=== PATIENT | female | born 1940 | race Caucasian/White ===

== ENCOUNTER 2022-02-15 00:41 | Inpatient (IN) | payer MEDICARE ==
[~2022-02-15] VITALS: Ht 162.6 cm; Wt 55.2 kg
[2022-02-15] MEDS ORDERED: Percocet 5-3251 EACH PO (15:50)
[2022-02-15] MEDS ORDERED: ATOR80 PO (15:50)
[2022-02-15] MEDS ORDERED: OMEP20ER (15:52)
[2022-02-15] MEDS ORDERED: OXYC5 (15:52)
[2022-02-15] MEDS ORDERED: ONDA4ODT (15:54)
[2022-02-15 15:55] LABS: Hematocrit 31.4 % (33.0-51.0); Hemoglobin 9.7 g/dL (11.5-16.0); Mean Corpuscular HGB 34.3 pg (26.0-34.0); Mean Corpuscular HGB Conc 30.9 g/dL (31.5-36.5); Mean Corpuscular Volume 111 fL (80-100); Mean Platelet Volume 10.6 fL (9.1-12.4); Platelet Count 239 K/mm3 (150-400); RDW Coefficient Variation 12.9 % (11.7-14.2); RDW Standard Deviation 52.9 fL (35.1-46.3); Red Blood Cell Count 2.83 M/mm3 (3.80-5.20); White Blood Cell Count 6.18 K/mm3 (4.00-11.30)
[2022-02-15] MEDS ORDERED: TORSE20 PO (16:06)
[2022-02-15 16:29] LABS: Alanine Aminotransfer (ALT/SGP 38 U/L (12-78); Albumin/Globulin Ratio 0.5 (0.8-1.8); Alk Phos 89 U/L (50-136); Anion Gap 13 mmol/L (6-16); Aspartate Aminotrans (AST/SGOT 43 U/L (12-37); Bilirubin, Direct <0.1 mg/dL (0.0-0.3); Bilirubin, Indirect Unable to Calculate mg/dL (0.1-0.7); Bilirubin, Total 0.2 mg/dL (0.1-1.0); Blood Urea Nitrogen 87 mg/dL (8-24); Bun/Creatinine Ratio 8.9 (12.0-20.0); CO2, Blood 21 mmol/L (21-32); Chloride, Blood 108 mmol/L (98-108); Creatinine, Blood 9.77 mg/dL (0.40-1.00); Globulin, Blood 4.4 g/dL (2.2-4.0); Glomerular Filtration Rate 4 (60-); Glucose, Blood 93 mg/dL (70-99); Phosphorus, Blood 8.2 mg/dL (2.5-4.9); Potassium, Blood 4.4 mmol/L (3.5-5.5); Sodium, Blood 142 mmol/L (136-145); Total Protein, Blood 6.4 g/dL (6.4-8.2)
--- NOTE | 2022-02-15 16:57 | NUR ---
"Spiritual Care | Pt. request Pt. is awake in bed and welcomes my visit. Pts. daughter and granddaughter are present. Pt. is from [place] and is unsettled by her current condition as she has not experienced it before. Listen empathetically with a calming presence. Seek to normalize the Pt. experience. Prayed with Pt. Pt. verbalized gratitude for the spiritual care visit."
[2022-02-15 18:18] LABS: Digoxin (Lanoxin) 7.71 ug/mL (0.80-2.00)
--- NOTE | 2022-02-15 18:45 | NUR ---
PT ARRIVED THIS AFTERNOON FROM [facility] WITH DX OF AFIB RVR, HWNE ARRIVED PT'S AMIODARONE DRIP WAS COMPLETED. PT ARRIVED PAIN FREE, REPORTS SOME SOB WHICH IS UNCHANGED FOR HER. PT WITH MULTIPLE CRITCAL VALUES THAT WERE CALLED INTO DR HERNANDEZ. NEPHROLOGY CONSULT HAS BEEN COMPLETED VIA [facility]. PT A/O X3, SHE IS NOT ABLE TO PROVIDE ALL OF HER OWN MEDICAL HX. FAMILY HAS ARRIVED FROM [place] AT THIS TIME AND IS AT THE BEDSIDE. VSS, SHE DOES HAVE SOME SOFT BLOOD PRESSURES INTERMITTENTLY. EKG COMPLETE. MED REC COMPLETED PER MEDICATION LIST FROM HER PHARMACY
[2022-02-15 20:14] LABS: Uric Acid, Blood 4.9 mg/dL (2.6-6.0)
--- NOTE | 2022-02-15 21:00 | NUR ---
ASSUMPTION OF CARE THIS RN ASSUMED CARE OF PATIENT AT 1900. REPORT TAKEN FROM QUINTIN BERNARD. PATIENT CONTINUES TO BE IN AFIB ON THE MONITOR WITH HR 90-110S. PATIENT DENIES CHEST PAIN/PRESSURE. BP HAS BEEN SOFT WITH SBP RANGING FROM 80-100. MAP REMAINS >65. PATIENT DENIES SOB. SPO2 >92% ON RA. AFEBRILE. PATIENT IS ALERT AND ORIENTED X4. ABLE TO MAKE NEEDS KNOWN. MINIMUM ASSISTANCE NEEDED FOR REPOSITIONING IN BED. PATIENT WITH C/O PAIN IN TAILBONE; THIS RN NOTES A REPORTED TAILBONE FX IN H/P. SKIDDER THAD RN TO PATIENT'S RM AROUND 2044 TO SET UP PD AT BEDSIDE. PATIENT WILL RECEIVE PD FOR 8 HOURS DURING THIS SHIFT PER THAD BERNARD. PATIENT'S PD CATHETER IN RLQ OF ABDOMEN APPEARS WNL WITH NO SIGNS OF SWELLING/REDNESS/DRAINAGE PRIOR TO DIALYSIS STARTING; DRESSING C/D/I. NO FURTHER COMPLAINTS/NEEDS BY PATIENT AT THIS TIME. BED IN LOWEST POSITION AND CALL LIGHT WITHIN REACH. THIS RN WILL CONTINUE TO MONITOR AND PROVIDE INTERVENTIONS NEEDED/ORDERED.
[2022-02-16 03:46] LABS: Hematocrit 26.5 % (33.0-51.0); Hemoglobin 8.2 g/dL (11.5-16.0); Mean Corpuscular HGB 33.5 pg (26.0-34.0); Mean Corpuscular HGB Conc 30.9 g/dL (31.5-36.5); Mean Corpuscular Volume 108 fL (80-100); Mean Platelet Volume 10.5 fL (9.1-12.4); Platelet Count 201 K/mm3 (150-400); RDW Coefficient Variation 12.8 % (11.7-14.2); RDW Standard Deviation 50.3 fL (35.1-46.3); Red Blood Cell Count 2.45 M/mm3 (3.80-5.20); White Blood Cell Count 5.36 K/mm3 (4.00-11.30)
[2022-02-16 04:19] LABS: Albumin, Blood 1.7 g/dL (3.4-5.0); Anion Gap 12 mmol/L (6-16); Blood Urea Nitrogen 86 mg/dL (8-24); Bun/Creatinine Ratio 8.7 (12.0-20.0); CO2, Blood 23 mmol/L (21-32); Calcium, Blood 8.5 mg/dL (8.5-10.1); Chloride, Blood 107 mmol/L (98-108); Creatinine, Blood 9.94 mg/dL (0.40-1.00); Glomerular Filtration Rate 4 (60-); Glucose, Blood 120 mg/dL (70-99); Phosphorus, Blood 8.5 mg/dL (2.5-4.9); Potassium, Blood 3.8 mmol/L (3.5-5.5); Sodium, Blood 142 mmol/L (136-145)
--- NOTE | 2022-02-16 04:57 | NUR ---
SHIFT SUMMARY NO ACUTE EVENTS OVERNIGHT. PATIENT RECEIVING PERITONEAL DIALYSIS CURRENTLY. PATIENT CONTINUES TO HAVE SOFT BP'S WITH SBP 80-90'S, MAP REMAINS >65. PATIENT CONTINUES TO BE IN AFIB WITH HR 90-110S THROUGHOUT THE SHIFT. AFEBRILE. ON RA WITH O2 SATS >94%. DENIES CHEST PAIN/PRESSURE AND SOB. TROPONIN'S PEAKED AT 1608, THE LAST TROPONIN WAS 1445. MEPIPLEX PLACED ON COCCYX TO PROVIDE PADDING. PATIENT ABLE TO MAKE NEEDS KNOWN. CALLING APPROPRIATELY. BED IN LOWEST POSITION AND CALL LIGHT WITHIN REACH. THIS RN WILL CONTINUE TO MONITOR AND PROVIDE INTERVENTIONS NEEDED/ORDERED UNTIL SHIFT CHANGE AT 0700.
[2022-02-16 12:19] LABS: Anti-Xa UFH, PHA Monitoring 0.14 IU/mL; International Normalized Ratio 1.11; Prothrombin Time Results 11.6 Sec (9.7-11.5)
--- NOTE | 2022-02-16 18:25 | NUR ---
PT WITH ORTHOSTATIC BP WHEN [place] [facility] [place] PT ADDITIONALLY REFUSED TO USE BEDPAN LATER IN THE DAY, HER BP HAS BEEN READING ABOVE 100 SYSTOLIC, PT WAS AGAIN ASSISTED [place] [facility] [place] SHE AGAIN FELT DIZZY AND HAD ORTHOSTATIC BP, HER HR REMAINED UNCHANGED DURING THESE EPISODES. PT EDUCATED WELL FAMILY AT BEDSIDE THAT PT WILL BE BEDREST AND BEDPAN WILL BE USED FOR THIS TIME. HR HAS REMAINED 90-110s T/O THE DAY, AND SHE REMAINS IN A-FIB. SHE IS A/O X4. SHE ANSWERS QUESTIONS APPROPRIATELY IN FULL SENTENCES. PT'S APPETITE HAS SLOWLY INCREASED T/O THE DAY. HEPARIN DRIP IS INFUSING AT THIS TIME 15U/KG/HR. CARDIOLOGY AND NEPHROLOGY HAVE CONSULTED WITH PT TODAY
--- NOTE | 2022-02-16 20:45 | NUR ---
ASSUMPTION OF CARE THIS RN ASSUMED CARE OF PATIENT AT 1900. REPORT TAKEN FROM QUINTIN BERNARD. PATIENT REPOSITIONED, MEPIPLEX ON COCCYX CHANGED, AND LINEN CHANGED AFTER SHIFT CHANGE. PATIENT'S SBP 100'S, MAP >65. ON RA WITH O2 SATS >94%. PATIENT DENIES CHEST PAIN/PRESSURE AND SOB. AFEBRILE. PATIENT WAS MEDICATED PER EMAR FOR NAUSEA. CLOTH SHEARING SUPERVISOR TO ROOM AT TIME OF THIS NOTE FOR PERITONEAL DIALYSIS OVERNIGHT. PATIENT ABLE TO MAKE NEEDS KNOWN. BED IN LOWEST POSITION AND CALL LIGHT WITHIN REACH. THIS RN WILL CONTINUE TO MONITOR CLOSELY AND PROVIDE INTERVENTIONS NEEDED/ORDERED.
--- NOTE | 2022-02-16 21:17 | NUR ---
DIALYSIS-PD PT FALLS ASLEEP VERY EASY. AKSED IF I WAS A DIALYSIS PT. 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 TX- 6 L 1.5% AND 6L 2.5 % DEXTROSE BAGS. FILL 2000 ML,TOTAL 8000 ML. 4 CYCLES, NO LAST FILL. DWELL TIME 1HR 34 MIN. SITE CLEAN.
[2022-02-17 02:05] LABS: Hematocrit 27.7 % (33.0-51.0); Mean Platelet Volume 10.4 fL (9.1-12.4); Platelet Count 214 K/mm3 (150-400)
--- NOTE | 2022-02-17 04:22 | NUR ---
SHIFT SUMMARY NO ACUTE CHANGES OVERNIGHT. PATIENT CONTINUES TO BE IN AFIB WITH HR 90-110S. BP STABLE; SBP 110-120S. AFEBRILE. ON RA WITH O2 SATS >92%. PATIENT RECEIVING PERITONEAL DIALYSIS OVERNIGHT WITH NO ACUTE EVENTS. PATIENT REPOSITIONED Q2HRS. ON BEDREST. CONTINENT OF B/B AND USING BEDPAN. NO FURTHER CHANGES, SEE PREVIOUS NOTE AND ASSESSMENT. ABLE TO MAKE NEEDS KNOWN. BED IN LOWEST POSITION AND CALL LIGHT WITHIN REACH. THIS RN WILL CONTINUE TO MONITOR UNTIL SHIFT CHANGE AT 0700.
--- NOTE | 2022-02-17 07:31 | NUR ---
DIALYSIS-PD PT IS AWAKE IN BED, ALERT AND ORIENTED. OVERNIGHT CCPD COMPLETED ORDERED, ASEPTICALLY DISCONNECTED AND CAPPED, CYCLER STRIPPED AND CLEAN. MD CONSULTED FOR NEW ORDERS/PLAN OF CARE
--- NOTE | 2022-02-17 17:30 | NUR ---
SHIFT SUMMARY; ASSUMED CARE AT 0700, A/A/OX4. INDEPENDANT WITH POSITIONING IN BED, USES BEDPAN WITH ASSIST. STATES DOESN'T WANT TO USE COMMODE, FEELS TO WEAK. PERITONEAL DIALYSIS COMPLETED DURING THE NIGHT. C/O NAUSEA MOST OF DAY. REPORTS THIS IS NORMAL AFTER DIAYLSIS. MEDICATED FOR NAUSEA PER EMAR. DRINKING PO FLUIDS AND EATING ICE CHIPS, DECLINES FOOD TRAYS. HR AFIB 110-120, BP STABLE. SLEEPS MOST OF DAY, FAMILY AT BEDSIDE, HEPARIN DC'D AT 1600 PER ORDERS, STARTING PO ELIQUIS TONIGHT. WILL CONTINUE TO MONITOR AND TREAT UNTIL CHANGE OF SHIFT.
--- NOTE | 2022-02-17 19:38 | NUR ---
PT AWAKE, ALERT, WATCHING TV IN BED. REPORTS SOME DISCOMFORT SECONDARY TO HISTORY OF SPINAL INJURY. ASSISTED ONTO BED GRECO PER REQUEST. CYCLER STRUNG, PRIMED AND PROGRAMMED PER ORDERS. EXIT SITE CARE DEFERED THIS EVENING DRESSING DRY TIGHT AND INTACT. WHEN PRIME COMPLETE, PT AESEPTICALLY CONNECTED AND OVERNIGHT CCPD STARTED. PT MONITORED THROUGH INITIAL DRAIN UNTIL START OF FILL #1 TO ASSESS PT'S TOLERANCE. NO ACUTE DISCOMFORT R/T CCPD VEBALLIZED OR OBSERVED. PCU STAFF AWARE OF OVERNIGHT THERAPY IN PROGRESS.
[2022-02-18 04:51] LABS: Hematocrit 29.8 % (33.0-51.0); Hemoglobin 9.7 g/dL (11.5-16.0); Mean Corpuscular HGB 34.2 pg (26.0-34.0); Mean Corpuscular HGB Conc 32.6 g/dL (31.5-36.5); Mean Corpuscular Volume 105 fL (80-100); Mean Platelet Volume 10.5 fL (9.1-12.4); NRBC ABSOLUTE 0.03 K/mm3 (0.00-0.02); NRBC Auto 0.3 /100 WBC (0.0-0.2); Platelet Count 224 K/mm3 (150-400); RDW Coefficient Variation 13.2 % (11.7-14.2); RDW Standard Deviation 50.6 fL (35.1-46.3); Red Blood Cell Count 2.84 M/mm3 (3.80-5.20); White Blood Cell Count 9.31 K/mm3 (4.00-11.30)
[2022-02-18 05:52] LABS: Albumin, Blood 1.7 g/dL (3.4-5.0); Anion Gap 13 mmol/L (6-16); Blood Urea Nitrogen 85 mg/dL (8-24); Bun/Creatinine Ratio 8.7 (12.0-20.0); CO2, Blood 23 mmol/L (21-32); Calcium, Blood 8.6 mg/dL (8.5-10.1); Chloride, Blood 101 mmol/L (98-108); Creatinine, Blood 9.79 mg/dL (0.40-1.00); Glomerular Filtration Rate 4 (60-); Glucose, Blood 110 mg/dL (70-99); Potassium, Blood 4.1 mmol/L (3.5-5.5); Sodium, Blood 137 mmol/L (136-145)
--- NOTE | 2022-02-18 06:49 | NUR ---
CORN DETASSELER SUMMARY PT IS ALERT AND ORIENTED X3, COOPERATIVE WITH CARE. SHE APPEARS WEAK FOLLOWING PERITONEAL DIALYSIS. PT COMPLAINED OF BACK PAIN AT HS SO GIVEN PAIN MEDICATION. SHE ALSO REPORTS FEELING NAUSEOUS MOST OF THE NIGHT SO WAS MEDICATED WITH ZOFRAN. PT ABLE TO TURN HERSELF IN BED FREQUENTLY. SHE HAS BEEN AFIB IN THE 90S TO 100S THROUGHOUT THE SHIFT. OXYGEN SATURATION >92% ON RA. BP HAS BEEN STABLE. PT REPORTS PAIN THIS MORNING BUT REFUSED PAIN MEDICATION.
--- NOTE | 2022-02-18 07:19 | NUR ---
PT AWAKE, ALERT, LYING IN BED THIS AM. VERB RELATIVE COMFORT AT THIS TIME. OVERNIGHT CCPD COMPLETE ORERED. PT AESEPTICALLY DISCONNECTED AND CAPPED. CATHETER SECURED FOR THE DAY. CYCLER STRIPPED AND CLEANED. EFFLUENT CLEAR, LIGHT JOSE ANGEL. DR MARIO CONSULTED FOR NEW ORDERS / PLAN OF CARE.
--- NOTE | 2022-02-18 15:45 | NUR ---
Reviewed chart and discussed case with Dr Javed. Pt and family may benefit from discussion to consider hospice. Spoke with Primary RN Sharri and discussed case. Pt resting in bed with daughter and granddaughter at bedise. Daughter Ira reports Pt and family live [place]. Engaged in therapeutic discussion regarding goals of care. Gentle education on disease process including trajectory. Discussed considering hospice. Educated on hospice philosophy with V/U made by family. Pt appears to be withdrawn from conversation. She reports conversation being overwhelming. Offered emotional support as Granddaugter intermittently tearful. Pt and family express appreciation and report plan to discuss further. Provided Palliative Care contact information and instructed to call with any questions or concerns. Palliative Care will remain available.
--- NOTE | 2022-02-18 17:56 | NUR ---
SHIFT SUMMARY; ASSUMED CARE AT 0700, A/A/OX4. PERITONEAL DIALYSIS COMPLETE AT START OF SHIFT. PT WEAK AND PALE. DECLINES ATTEMPTING TO USE COMMODE, REQUESTS BEDPAN. ABLE TO ROLL WITH ASSISTANCE. REPOSITIONED Q2, MEPILEX TO COCCYX IN TACT. FAMILY AT BEDSIDE DURING SHIFT. PALLATIVE CARE RN MET WITH FAMILY. POOR APPETITITE DUE TO NAUSEA. MEDICATED PER EMAR. DISCUSSED IMPORTANCE OF TRYING TO EAT, STATES WILL TRY THIS EVENING. TAKING PO FLUIDS, NO VOMITING DURING SHIFT. VSS, WILL CONTINUE TO MONITOR AND TREAT UNTIL CHANGE OF SHIFT.
--- NOTE | 2022-02-18 18:03 | NUR ---
RESTING IN BED. FAMILY IN ROOM. PT C/O SOME ONGOING NAUSEA CYCLER STRUNG , PRIMED AND PROGRAMMED PER ORDERS. EXIT SITE CARE DONE. SITE CLEAR, DRY, TIGHT AND NON-TENDER. NEW STERING DRESSING APPLIED WITH 2 STRAIN RELIEFS. WHEN PRIME COMPLETE, PT AESEPTICALLY CONNECTED AND OVERNIGHT THERPY STARTED. PATENT MONITORED FOR SIGNS OF DISCOMFORT THROUGH ID AND START OF FILL #1. NO DISCOMFORT REPORTED. PCU STAFF AWARE OF OVERNIGHT THERAPY IN PROGRESS.
--- NOTE | 2022-02-19 05:59 | NUR ---
TAIL RIPPER SUMMARY PT IS ALERT AND ORIENTED X3, COOPERATIVE THOUGH SLIGHTLY WITHDRAWN SINCE TALK OF HOSPICE. SHE IS LESS MOTIVATED THIS SHIFT THAN PREVIOUSLY. PT WAS MEDICATED X1 FOR NAUSEA WITH IMPROVEMENT. SHE IS NOT NAUSEOUS THIS MORNING AND APPEARS MORE ALERT. PT IS CONTINENT AND ABLE TO ROLL HERSELF TO USE A BEDPAN. CALLS APPROPRIATELY. PT STILL RECEIVING PERITONEAL DIALYSIS EVERY NIGHT AND REPORTS FOLLOWING FATIGUE. DIGOXIN LEVEL ELEVATED THIS MORNING AT 3.38, TRENDING DOWNWARD. NO ACUTE EVENTS. PT HAS BEEN AFIB IN THE 90S THROUGHOUT THE SHIFT. SHE DID HAVE SOME OXYGEN DESATURATION DURING SLEEP WITH SUSPECTED SLEEP APNEA. SATURATION DROPPED INTO THE HIGH 70S, BUT RECOVERED QUICKLY. PLACED ON 1L BY MI FOR ASSISTANCE.
[2022-02-19 06:08] LABS: Digoxin (Lanoxin) 3.38 ug/mL (0.80-2.00)
--- NOTE | 2022-02-19 10:00 | NUR ---
DIALYSIS-PD PT WAS ALERT, LYING IN BED, NO COMPLAINTS. CCPD THERAPY COMPLETED. DISCONNECTED ASEPTICALLY, CAPPED PER PROTOCOLS. CCPD MACHINE STRIPPED AND CLEANED. DRESSING IS CLEAN, DRY AND INTACT. I-DRAIN 257, UF -146.
--- NOTE | 2022-02-19 17:43 | NUR ---
SHIFT SUMMARY; ASSUMED CARE AT 0700. PALE AND WEAK DURING SHIFT. A/A/OX3. ASKS FOR BEDPAN MULTIPLE TIMES DURING SHIFT WITH NO URINE OUTPUT. BED BATH COMPLETE TODAY WITH LINEN CHANGE. MEPILEX TO COCCYX, REPOSITIONING Q2. STATUS CHANGED TO MEDICAL TODAY AND DNR. DISCUSSED BY DR. AHUMADA WITH DAUGHTER. HOSPICE VS. HOME HEALTH ALSO DISCUSSED. PALLATIVE TO MEET WITH FAMILY TOMORROW FOR FURTHER PLANNING. VSS, NO ACUTE MEDICAL CHANGES, WILL CONTINUE TO MONITOR AND TREAT UNTIL CHANGE OF SHIFT.
--- NOTE | 2022-02-19 18:02 | NUR ---
PT AWAKE / ALERT / COMFORTABLE IN BED WITH FAMILY AT BEDSIDE. REPORTS CONT. LOW GRADE NAUSEA AND POOR APPETITE. CYCLER STRUNG, PRIMED AND PROGRAMMED PER RX. WHEN PRIME COMPLETE, PT AESEPTICALLY CONNECTED AND OVERNIGHT THERAPY STARTED. EXIT SITE REMAINS CLEAR, DRY, TIGHT AND NON-TENDER. PT MONITORED THOUGH INITIAL DRAIN AND START OF FILL #1. NO DISCOMFORT REPORTED. PCU STAFF ARE AWARE OF OVERNIGHT THERAPY IN PROGRESS.
--- NOTE | 2022-02-19 22:52 | NUR ---
AT 1930 PATIENT RESTLESS AND UPSET DUE TO FEELING IF SHE NEEDING TO HAVE A BM, PATIENT PLACED ON BEDPAN AND WAS ABLE TO PASS SMALL HARD ROUND BROWN STOOL AFTER PLACING [place] JELLY WITH DIGITAL FEELING MOD AMT OF HARD STOOL IN RECTAL VAULT. PERITONEAL DIALYSIS CATHETER IN PLACE TO RIGHT UPPER QUAD, AND HOOKED UP TO PD MACHINE AT THIS TIME. FOAM DRESSING TO COCCYX COVERING RED COCCYX NO OPEN AREA SEEN. MURMUR HEARD WITH HEART TONES, MED NO TELE.
--- NOTE | 2022-02-20 05:35 | NUR ---
SUMMARY PATIENT SLEEPING OFF AND ON T/O NIGHT. ON BEDPAN SEVERAL TIMES DURING THE NIGHT DUE TO URGE TO HAVE BM. ABLE TO PASS MED HARD ROUND STOOL ONCE WITH SMALL AMT OF BLOOD TINGED ON BROWN BM. PLAN TO CHECK TODAY TO SEE IF PATIENT CAN HAVE SUPPOSITORY TO ASSIST WITH BM. PD IN PLACE T/O NIGHT RUNNING WITHOUT DIFFICULTY.
[2022-02-20 05:53] LABS: Albumin, Blood 1.7 g/dL (3.4-5.0); Anion Gap 15 mmol/L (6-16); Blood Urea Nitrogen 82 mg/dL (8-24); CO2, Blood 24 mmol/L (21-32); Calcium, Blood 8.7 mg/dL (8.5-10.1); Chloride, Blood 98 mmol/L (98-108); Glucose, Blood 102 mg/dL (70-99); Phosphorus, Blood 7.6 mg/dL (2.5-4.9); Potassium, Blood 3.8 mmol/L (3.5-5.5); Sodium, Blood 137 mmol/L (136-145)
[2022-02-20 05:56] LABS: Bun/Creatinine Ratio 8.6 (12.0-20.0); Creatinine, Blood 9.49 mg/dL (0.40-1.00); Digoxin (Lanoxin) 2.54 ug/mL (0.80-2.00); Glomerular Filtration Rate 4 (60-)
--- NOTE | 2022-02-20 07:20 | NUR ---
DIALYSIS NOTE PT AWAKE, ALERT, LYING IN BED THIS AM. OVERNIGHT CCPD COMPLETE ORERED. I-DRAIN 237, TUF 304, AV DWELL 1:34, PT AESEPTICALLY DISCONNECTED AND CAPPED. CATHETER SECURED FOR THE DAY. CYCLER STRIPPED AND CLEANED. EFFLUENT CLEAR, NO FIBRIN NOTED. DR MARIO CONSULTED FOR NEW ORDERS / PLAN OF CARE.
[2022-02-20] MEDS ORDERED: Amiodarone HCl200 MG PO (11:44)
[2022-02-20] MEDS ORDERED: ELIQUIS2.5 MG PO (11:45)
[2022-02-20] MEDS ORDERED: METO25 PO (11:45)
[2022-02-20] MEDS ORDERED: MIDO5 PO (11:46)
[2022-02-20] MEDS ORDERED: SEVEC800 PO (11:46)
--- NOTE | 2022-02-20 17:43 | NUR ---
DISCHARGE SUMMARY PT A&Ox4, VSS, SpO2> 92% RA. PT NOT ON TELE. DENIES SOB/CP/PRESSURE. BEDBATH GIVEN, TOILETED, AND DRESSED IN PERSONAL CLOTHES BEFORE DISCHARGE. FAMILY AT BEDSIDE WHILE DISCHARGE INSTRUCTIONS WERE PROVIDED. IV REMOVED, WNL. AT APPROXIMATELY 1415, PT TAKEN OUT TO CAR VIA WHEELCHAIR BY CLINICAL STAFF WITH FAMILY AND BELONGINGS PRESENT.
== END 2022-02-20 14:10 | disposition home health service (06) | DRG 308 ==
LOC: PCU 00:41
PROVIDERS: Internal Medicine; Internal Medicine Interventional Cardiology; Internal Medicine Nephrology; ADMIT Internal Medicine
PROC: 3E1M39Z Irrigation of Peritoneal Cavity using Dialysate, Percutaneous Approach (ICD-10-PCS; principal; 2022-02-16)
DX: I48.91 Unspecified atrial fibrillation (principal); G92.8 Other toxic encephalopathy; J18.9 Pneumonia, unspecified organism; N18.6 End stage renal disease; S22.059A Unspecified fracture of T5-T6 vertebra, initial encounter for closed fracture; I24.8 Other forms of acute ischemic heart disease; I69.354 Hemiplegia and hemiparesis following cerebral infarction affecting left non-dominant side; I12.0 Hypertensive chronic kidney disease with stage 5 chronic kidney disease or end stage renal disease; I08.0 Rheumatic disorders of both mitral and aortic valves; K21.9 Gastro-esophageal reflux disease without esophagitis; W18.30XA Fall on same level, unspecified, initial encounter; Z66 Do not resuscitate; E78.5 Hyperlipidemia, unspecified; G47.00 Insomnia, unspecified; Z79.899 Other long term (current) drug therapy; I27.20 Pulmonary hypertension, unspecified; Z88.2 Allergy status to sulfonamides; Z88.5 Allergy status to narcotic agent; Z88.6 Allergy status to analgesic agent; Z88.8 Allergy status to other drugs, medicaments and biological substances
CPT/HCPCS: 36415; 71045; 80053; 80069; 80162; 82248; 82550; 83615; 83735; 84145; 84443; 84484; 84550; 85014; 85018; 85027; 85049; 85520; 85610; 85730; 93005; 93010; 93306; 96372; 96374; A9270; G0378; J0696; J1644; J2405